=== PATIENT | male | born 1945 | race Caucasian/White ===

== ENCOUNTER 2020-04-28 07:20 | Day surgery (SDC) | payer MEDICARE, OTHER ==
[2020-04-28] VITALS (9 sets, daily range): BP systolic 86–175; BP diastolic 50–108
[~2020-04-28] VITALS: Ht 182.9 cm; Wt 87.5 kg
[2020-04-28] MEDS ORDERED: normal saline 1000ml 1,000 ML IV SCH (08:05)
[2020-04-28] MEDS ORDERED: atropine 0.1mg/ml 10ml syringe IV ONE (08:05)
[2020-04-28] MEDS ORDERED: amiodarone 150mg/dext, iso-os 100 ML IV ONE (08:05)
[2020-04-28] MEDS ORDERED: diphenhydrAMINE 25mg capsule PO ONE ×2 (08:05→09:15)
[2020-04-28] MEDS ORDERED: morphine 10mg/ml inj. IV ONE (08:05)
[2020-04-28] MEDS ORDERED: LORazepam 0.5 MG tablet PO ONE (08:05)
[2020-04-28] MEDS ORDERED: MIDAZolam 1mg/ml 10ml vial IV ONE (08:05)
[2020-04-28] MEDS ORDERED: WARF1TAB2 PO (08:32)
[2020-04-28] MEDS ORDERED: MAGN200T PO (08:32)
[2020-04-28] MEDS ORDERED: SOTA80TA73 PO (08:32)
[2020-04-28] MEDS ORDERED: ASCO500W7 PO (08:32)
[2020-04-28 08:34] LABS: BASOPHILS % (AUTO) 0.5 % (0-1); EOSINOPHILS # (AUTO) 0.3 X10'3 (0-0.9); EOSINOPHILS % (AUTO) 4.3 % (0-6); HEMATOCRIT 50.3 % (42.0-52.0); HEMOGLOBIN 16.7 g/dl (14.0-17.9); LYMPHOCYTES % (AUTO) 14.6 % (21-51); MEAN CORPUSCULAR HEMOGLOBIN 29.4 PG (27.0-31.0); MEAN CORPUSCULAR HGB CONC 33.2 g/dL (33.0-36.5); MEAN CORPUSCULAR VOLUME 88.4 FL (78-98); MEAN PLATELET VOLUME 7.2 FL (7.4-10.4); MONOCYTES # (AUTO) 0.5 X10'3 (0-0.9); MONOCYTES % (AUTO) 6.8 % (2-12); NEUTROPHILS # (AUTO) 5.3 X10'3 (1.8-7.7); NEUTROPHILS % (AUTO) 73.8 % (42-75); PLATELET COUNT 302 X10'3 (140-440); RED BLOOD COUNT 5.69 X10'6 (4.70-6.10); RED CELL DISTRIBUTION WIDTH 15.6 % (11.5-14.5); WHITE BLOOD COUNT 7.1 X10'3 (4.5-11.0)
[2020-04-28 08:35] LABS: ALBUMIN 3.7 G/DL (3.4-5.0); ANION GAP 7 (8-16); BLOOD UREA NITROGEN 21 MG/DL (7-18); BUN/CREATININE RATIO 20.6 (5.4-32.0); CALCIUM 8.8 MG/DL (8.5-10.1); CHLORIDE 106 MMOL/L (99-107); CREATININE 1.02 MG/DL (0.60-1.10); GLUCOSE 113 MG/DL (70-104); POTASSIUM 4.4 MMOL/L (3.5-5.1); SODIUM 142 MMOL/L (135-145); TOTAL CARBON DIOXIDE 28.7 MMOL/L (24-32); eGFR 72 ML/MIN
== END 2020-04-28 11:55 | disposition home or self-care (01) ==
LOC: SSTAY O 07:20
PROVIDERS: ATTEND Internal Medicine Cardiovascular Disease
DX: I48.19 Other persistent atrial fibrillation (principal); I10 Essential (primary) hypertension; M19.90 Unspecified osteoarthritis, unspecified site; Z98.890 Other specified postprocedural states; Z79.82 Long term (current) use of aspirin; Z79.899 Other long term (current) drug therapy
CPT/HCPCS: 36415; 80048; 85025; 85610; 92960; 93005; 94760; J0461; J2250; J2270; J7030; Q0163

== ENCOUNTER 2021-03-03 06:41 | Day surgery (SDC) | payer MEDICARE, OTHER ==
[2021-02-25 10:59] LABS: CLARITY,URINE CLEAR (Clear); COLOR,URINE YELLOW (Yellow); GLUCOSE, URINE NEGATIVE (Neg); KETONES,URINE NEGATIVE (Neg); LEUKOCYTE ESTERASE ,URINE NEGATIVE (Neg); NITRITES, URINE NEGATIVE (Neg); OCCULT BLOOD,URINE NEGATIVE (Neg); PROTEIN,URINE TRACE mg/dl (Neg)
[2021-02-25 11:00] LABS: BASOPHILS % (AUTO) 0.5 % (0-1); EOSINOPHILS # (AUTO) 0.3 X10'3 (0-0.9); EOSINOPHILS % (AUTO) 3.8 % (0-6); LYMPHOCYTES # (AUTO) 0.9 X10'3 (1.1-4.8); LYMPHOCYTES % (AUTO) 13.2 % (21-51); MEAN CORPUSCULAR HEMOGLOBIN 29.5 PG (27.0-31.0); MEAN CORPUSCULAR HGB CONC 33.5 g/dL (33.0-36.5); MEAN CORPUSCULAR VOLUME 88.2 FL (78-98); MEAN PLATELET VOLUME 7.6 FL (7.4-10.4); MONOCYTES # (AUTO) 0.6 X10'3 (0-0.9); MONOCYTES % (AUTO) 7.7 % (2-12); NEUTROPHILS # (AUTO) 5.4 X10'3 (1.8-7.7); NEUTROPHILS % (AUTO) 74.8 % (42-75); PRE OP HEMATOCRIT 47.5 % (42.0-52.0); PRE OP HEMOGLOBIN 15.9 g/dL (14.0-17.9); PRE OP PLATELET COUNT 310 X10'3 (140-440); RED BLOOD COUNT 5.39 X10'6 (4.70-6.10); RED CELL DISTRIBUTION WIDTH 16.9 % (11.5-14.5)
[2021-02-25 11:07] LABS: UA COLLECTION TYPE CLN CATCH MIDSTREAM
[2021-02-25 11:14] LABS: BACTERIA,URINE 1+ /HPF (Neg); RBC,URINE 0-2 /HPF (0-2); SQUAMOUS EPITHELIAL CELL,UR FEW /LPF (FEW); WBC,URINE 0-4 /HPF (0-4)
[2021-02-25 11:19] LABS: ALBUMIN 3.4 G/DL (3.4-5.0); ALBUMIN/GLOBULIN RATIO 0.8 (1.1-1.5); ALKALINE PHOSPHATASE 78 IU/L (46-116); BLOOD UREA NITROGEN 20 MG/DL (7-18); BUN/CREATININE RATIO 22.7 (5.4-32.0); CALCIUM 8.6 MG/DL (8.5-10.1); CHLORIDE 106 MMOL/L (99-107); CREATININE 0.88 MG/DL (0.60-1.10); PRE OP ALT 16 U/L (30-65); PRE OP ANION GAP 8 (8-16); PRE OP AST 16 U/L (10-37); PRE OP BILIRUB, TOTAL 0.9 MG/DL (0.0-1.0); PRE OP GLUCOSE 100 MG/DL (70-104); PRE OP POTASSIUM 4.6 MMOL/L (3.4-5.1); PRE OP SODIUM 143 MMOL/L (135-145); TOTAL CARBON DIOXIDE 28.7 MMOL/L (24-32); TOTAL PROTEIN 7.8 G/DL (6.4-8.2); eGFR 85 ML/MIN
[~2021-03-03] VITALS: Ht 182.9 cm; Wt 95.0 kg
[2021-03-03] VITALS (13 sets, daily range): BP systolic 131–170; BP diastolic 81–112
[~2021-03-03 06:41] MED LIST: ASCO500W7 PO; CARV-50 PO; DOCUMENT DATE & TIME OF BETA-BLOCKER PO ONE; MAGN200T PO; POTASSIUM PO; TRAM50TA2 PO; WARF1TAB2 PO; ZINC50TA67 PO; [UNRECOGNIZED DRUG - CODE] PO; cefazolin/dext.iso 2gm/100ml IV ONE; famotidine 20mg tablet PO ONE; ringers solution, lacted 1,000 ML IV SCH
[2021-03-03 08:44] LABS: PRE OP PARTIAL THROMB. TIME 35 SECONDS (22-32)
[2021-03-03] MEDS ORDERED: BUPIVAcaine/PF 2.5 mg/ml (0.25%) 30ml vial ONE (08:55)
[2021-03-03] MEDS ORDERED: midazolam 1 mg/ML 2ml injection ONE (10:24)
[2021-03-03] MEDS ORDERED: fentaNYL/PF 50MCG/1 ML 2ML syringe ONE (10:24)
[2021-03-03] MEDS ORDERED: propofol inj 20 ML IV ONE (10:36)
[2021-03-03] MEDS ORDERED: LIDOcaine 2% (20mg/ml) 5ml vial ONE (10:36)
[2021-03-03] MEDS ORDERED: ondansetron/PF 4mg/2ml inj ONE (10:37)
[2021-03-03] MEDS ORDERED: dexamethasone sod phosphate 4mg/ml inj. ONE (10:37)
[2021-03-03] MEDS ORDERED: morphine 4 MG/ML inj SYRINge IV PRN (11:05)
[2021-03-03] MEDS ORDERED: meperidine/PF 25mg/ml syringe IV PRN ×3 (11:05)
[2021-03-03] MEDS ORDERED: morphine 2 MG/ML inj. syringe IV PRN (11:05)
[2021-03-03] MEDS ORDERED: ringers solution, lacted 1,000 ML IV SCH (11:05)
[2021-03-03] MEDS ORDERED: ondansetron/PF 4mg/2ml inj IV PRN (11:05)
[2021-03-03] MEDS ORDERED: proCHLORperazine 10 MG/2 ml inj IV PRN (11:05)
--- NOTE | 2021-03-03 12:25 | NUR ---
Received from OR via kun , accompanied by Anesthesiologist DENIA and report given by Anesthesiolgist. PT 2OG OIV IN LEFT HAND WITH LR RUNNING AT 100 MLS/HR. VSS. TWO INCISSIONS TO RIGHT SIDE IMBILICUS. INCISSION DRY AND INTACT. PT REPORTS PAIN 0/10 AT THIS TIME. Addendum: 03/03/21 at 1246 by Miley Yeager RN, RN Amended: Links added.
--- NOTE | 2021-03-03 14:25 | NUR ---
ALL DISCHARGE CRITERIA HAS BEEN MET. VSS, PAIN AT A TOLERABLE LEVEL, VOIDING AND ABLE TO SAFELY AMBULATE AND TRANSFER SELF. IV TAKEN OUT WITHOUT ANY COMPLICATIONS. ALL DISCHARGE INSTRUCTIONS COVERED WITH PATIENT AND ALL QUESTIONS ANSWERED. PATIENT TAKEN OUT VIA WHEELCHAIR TO PERSONAL VEHICLE WHERE FAMILY/FRIEND DROVE PATIENT HOME. PT AMBULATED AND VOIDED IN THE BATHROOM, RETURNED BLADDER SCNNED WITH 0 RESIDUAL VOLUME. PT DRESSED AND TAKEN OUT IN WHEELCHAIR TO . PT AWARE OF RX AT [facility] IN [place]. Addendum: 03/03/21 at 1446 by Miley Yeager RN, RN Amended: Links added.
== END 2021-03-03 14:25 | disposition home or self-care (01) ==
LOC: PAS 06:41
PROVIDERS: ATTEND Surgery
DX: K40.90 Unilateral inguinal hernia, without obstruction or gangrene, not specified as recurrent (principal); D17.6 Benign lipomatous neoplasm of spermatic cord; Z20.822 Contact with and (suspected) exposure to COVID-19; M19.012 Primary osteoarthritis, left shoulder; I48.91 Unspecified atrial fibrillation; I10 Essential (primary) hypertension; Z79.899 Other long term (current) drug therapy; Z98.890 Other specified postprocedural states; Z91.018 Allergy to other foods; Z88.8 Allergy status to other drugs, medicaments and biological substances
CPT/HCPCS: 36415; 49650; 80053; 81001; 82948; 85025; 85610; 85730; 93005; C1758; C1781; J1100; J2001; J2250; J2405; J2704; J3010; J3490; J7120; U0003; U0005; A4215; A4618